=== PATIENT | female | born 1945 | race Hispanic/Latino ===

== ENCOUNTER 2017-12-24 18:36 | Inpatient (IN) | payer OTHER ==
[~2017-12-24] VITALS: Ht 157.5 cm; Wt 115.2 kg
[2017-12-24] MEDS ORDERED: ONDANSETRON HCL MDV 20ML 2 MG/ML VIAL ONE (19:59)
[2017-12-24] MEDS ORDERED: MORPHINE SULFATE 2 MG/ML 1ML SYG ONE ×2 (19:59→21:11)
[2017-12-24 20:07] LABS: BASOPHILS % (AUTO) 0.8 % (0.0-5.0); EOSINOPHILS % (AUTO) 3.8 % (0.0-8.0); HEMATOCRIT 29.6 % (36-48); LYMPHOCYTES % (AUTO) 20.6 % (21.0-51.0); MEAN CORPUSCULAR HEMOGLOBIN 32.1 pg (27.0-33.0); MEAN CORPUSCULAR HGB CONC 34.3 g/dL (32.0-36.0); MEAN CORPUSCULAR VOLUME 93.7 fL (79-99); MONOCYTES % (AUTO) 5.1 % (3.0-13.0); NEUTROPHILS % (AUTO) 69.7 % (40.0-77.0); PLATELET COUNT (AUTO) 176 K/uL (130-400); RED BLOOD CELL COUNT(AUTO) 3.16 MIL/uL (4.00-5.50); RED CELL DISTRIBUTION WIDTH 13.9 % (11.0-15.5); WHITE BLOOD COUNT (AUTO) 6.2 K/uL (4.8-10.8)
[2017-12-24 20:15] LABS: CREATININE 1.7 mg/dL (0.5-1.5); POTASSIUM 5.2 mmol/L (3.5-5.1)
[2017-12-24 20:16] LABS: PARTIAL THROMBOPLASTIN TIME 24.4 SEC (26.3-35.5); PROTHROMBIN TIME 10.5 SEC (9.6-11.6)
[2017-12-24 20:39] LABS: CREATINE KINASE MB 1.1 ng/mL (0.5-3.6)
[2017-12-24] MEDS ORDERED: ACETAMINOPHEN 325 MG TAB PO PRN (22:15)
[2017-12-24] MEDS ORDERED: CEFAZOLIN 1GM / D5W 50ML 50 ML IV SCH (22:15)
[2017-12-24] MEDS ORDERED: ONDANSETRON HCL 4 MG/2 ML VIAL IV PRN (22:15)
[2017-12-24] MEDS ORDERED: HYDRALAZINE HCL 20 MG/ML VIAL IV PRN (22:15)
[2017-12-24 23:00] VITALS: BP 140/57
[2017-12-24] MEDS ORDERED: SODIUM CHLORIDE 0.9% 1000ML 1,000 ML IV ONE (23:14)
[2017-12-24] MEDS ORDERED: CEFAZOLIN SODIUM 1 GM VIAL ONE (23:17)
[2017-12-25] VITALS (25 sets, daily range): BP systolic 116–163; BP diastolic 7–67
[2017-12-25] MEDS ORDERED: ONDANSETRON HCL MDV 20ML 2 MG/ML VIAL ONE ×4 (00:28→16:05)
[2017-12-25] MEDS ORDERED: MORPHINE SULFATE 2 MG/ML 1ML SYG ONE (00:28)
[2017-12-25] MEDS ORDERED: HYDR10 PO (01:34)
[2017-12-25] MEDS ORDERED: CEFAZOLIN SODIUM 1 GM VIAL IVP SCH (02:00)
[2017-12-25 05:21] LABS: HEMATOCRIT 26.7 % (36-48); MEAN CORPUSCULAR HEMOGLOBIN 31.4 pg (27.0-33.0); MEAN CORPUSCULAR HGB CONC 34.2 g/dL (32.0-36.0); PLATELET COUNT (AUTO) 172 K/uL (130-400); RED CELL DISTRIBUTION WIDTH 13.9 % (11.0-15.5); WHITE BLOOD COUNT (AUTO) 6.8 K/uL (4.8-10.8)
[2017-12-25 05:25] LABS: INR 1.02 (0.85-1.15); PARTIAL THROMBOPLASTIN TIME 24.3 SEC (26.3-35.5); PROTHROMBIN TIME 10.7 SEC (9.6-11.6)
[2017-12-25 05:43] LABS: HEMOGLOBIN A1C 6.1 % (4.0-6.0)
[2017-12-25 06:00] LABS: CREATININE 1.6 mg/dL (0.5-1.5); MAGNESIUM 1.9 mg/dL (1.80-2.40); PHOSPHORUS 4.1 mg/dL (2.5-4.9); POTASSIUM 5.1 mmol/L (3.5-5.1)
[2017-12-25] MEDS: MORPHINE SULFATE 2 MG/ML 1ML SYG IV PRN ×2 (06:02→10:11)
[2017-12-25 06:03] LABS: BAND NEUTROPHILS % (MANUAL) 6 % (0-2); EOSINOPHILS % (MANUAL) 1 % (1-6); LYMPHOCYTES % (MANUAL) 11 % (22-44); MAN.DIFF COMMENT-IMPRESSION MANUAL DIFFERENTIAL; MONOCYTES % (MANUAL) 7 % (2-9); SEGMENTED NEUTROPHILS % 75 % (40-70)
[2017-12-25 06:04] LABS: PLATELET MORPHOLOGY COMMENT ADEQUATE
[2017-12-25] MEDS: INSULIN HUMULIN R 100 UNIT/ML 3ML SQ SCH ×4 (06:26→20:27)
[2017-12-25] MEDS: DOCUSATE SODIUM 100 MG CAP PO SCH ×2 (09:00→20:26)
[2017-12-25] MEDS: PANTOPRAZOLE SODIUM 40 MG TABLET.DR PO SCH (09:00)
[2017-12-25] MEDS: SODIUM CHLORIDE 0.9% 1000ML 1,000 ML IV SCH ×2 (10:03→18:10)
[2017-12-25] MEDS: CEFAZOLIN SODIUM 1 GM VIAL IVP SCH ×2 (14:45→16:15)
[2017-12-25] MEDS ORDERED: CEFAZOLIN 2GM / 50 ML 50 ML IV SCH (14:45)
[2017-12-25] MEDS ORDERED: PROPOFOL 10 MG/ML 20ML VIAL IV ONE (15:38)
[2017-12-25] MEDS ORDERED: MIDAZOLAM HCL 1 MG/ML 2ML VIAL ONE (15:38)
[2017-12-25] MEDS ORDERED: FENTANYL CITRATE PF 50 MCG/1 ML 2ML VIAL ONE ×4 (15:38→18:15)
[2017-12-25] MEDS ORDERED: FERS325 PO (15:47)
[2017-12-25] MEDS ORDERED: PIOG15TA66 PO (15:47)
[2017-12-25] MEDS ORDERED: FURO20TA4 PO (15:47)
[2017-12-25] MEDS ORDERED: GLYCOPYRROLATE 0.2 MG/ML 5 ML VIAL ONE (16:05)
[2017-12-25] MEDS ORDERED: DiphenhydrAMINE HCL 50 MG/ML VIAL ONE (16:05)
[2017-12-25] MEDS ORDERED: NEOSTIGMINE METHYLSULFATE 1MG/ML IV ONE (16:05)
[2017-12-25] MEDS ORDERED: EPHEDRINE SULFATE 50 MG/ML AMPULE ONE (16:19)
[2017-12-25] MEDS ORDERED: SCOPOLAMINE HYDROBROMIDE 1 EACH ADH..PATCH TD ONE (16:21)
[2017-12-25] MEDS ORDERED: SODIUM CHLORIDE 0.9% 10 ML VIAL ONE (16:34)
[2017-12-25] MEDS ORDERED: PHENYLEPHRINE HCL 10 MG/ML 1ML VIAL IV ONE (16:34)
[2017-12-25] MEDS ORDERED: MEPERIDINE-PF 25 MG/ML SYG ONE (18:46)
[2017-12-25] MEDS: ONDANSETRON HCL MDV 20ML 2 MG/ML VIAL IV PRN (20:07)
[2017-12-26] MEDS: SODIUM CHLORIDE 0.9% 1000ML 1,000 ML IV SCH ×3 (03:56→22:58)
[2017-12-26 04:54] VITALS: BP 158/62
[2017-12-26 05:43] LABS: HEMATOCRIT 21.7 % (36-48); MEAN CORPUSCULAR HEMOGLOBIN 32.3 pg (27.0-33.0); MEAN CORPUSCULAR HGB CONC 34.8 g/dL (32.0-36.0); MEAN CORPUSCULAR VOLUME 92.9 fL (79-99); PLATELET COUNT (AUTO) 138 K/uL (130-400); RED BLOOD CELL COUNT(AUTO) 2.34 MIL/uL (4.00-5.50); RED CELL DISTRIBUTION WIDTH 13.8 % (11.0-15.5); WHITE BLOOD COUNT (AUTO) 8.3 K/uL (4.8-10.8)
[2017-12-26 06:05] LABS: CREATININE 1.7 mg/dL (0.5-1.5); MAGNESIUM 1.8 mg/dL (1.80-2.40); POTASSIUM 5.1 mmol/L (3.5-5.1)
[2017-12-26] MEDS: INSULIN HUMULIN R 100 UNIT/ML 3ML SQ SCH ×4 (06:38→20:34)
[2017-12-26 07:53] VITALS: BP 126/52
[2017-12-26] MEDS: PANTOPRAZOLE SODIUM 40 MG TABLET.DR PO SCH (09:13)
[2017-12-26] MEDS: DOCUSATE SODIUM 100 MG CAP PO SCH ×2 (09:13→21:22)
[2017-12-26] MEDS ORDERED: HYDROCORTISONE 0.5% 30 GM OINT TP PRN (10:00)
[2017-12-26] MEDS: ONDANSETRON HCL MDV 20ML 2 MG/ML VIAL IV PRN ×2 (10:36→18:46)
[2017-12-26] MEDS: MORPHINE SULFATE 2 MG/ML 1ML SYG IV PRN ×2 (10:37→18:46)
[2017-12-26] MEDS ORDERED: HYDROCORTISONE 1% 28.35 GM CREAM TP PRN (11:00)
[2017-12-26 12:00] VITALS: BP 121/55
[2017-12-26] MEDS: CEFAZOLIN SODIUM 1 GM VIAL IVP SCH (14:45)
[2017-12-26 16:25] VITALS: BP 123/54
[2017-12-26 19:54] VITALS: BP 106/50
[2017-12-26] MEDS ORDERED: HYDROCODONE/ACETAMINOPHEN 5/325 MG TAB ONE (21:19)
[2017-12-26] MEDS: HYDROCODONE/ACETAMINOPHEN 5/325 MG TAB PO SCH (21:22)
[2017-12-27] MEDS ORDERED: MORPHINE SULFATE 4 MG/1ML SYG IVP PRN (00:30)
[2017-12-27 00:40] VITALS: BP 101/59
[2017-12-27] MEDS: HYDROCODONE/ACETAMINOPHEN 5/325 MG TAB PO SCH ×6 (03:37→23:46)
[2017-12-27 04:00] VITALS: BP 127/62
[2017-12-27 05:29] LABS: CREATININE 1.6 mg/dL (0.5-1.5); POTASSIUM 4.6 mmol/L (3.5-5.1)
[2017-12-27 05:35] LABS: MEAN CORPUSCULAR HEMOGLOBIN 32.5 pg (27.0-33.0); MEAN CORPUSCULAR VOLUME 93.1 fL (79-99); PLATELET COUNT (AUTO) 121 K/uL (130-400); RED BLOOD CELL COUNT(AUTO) 2.24 MIL/uL (4.00-5.50); RED CELL DISTRIBUTION WIDTH 13.8 % (11.0-15.5); WHITE BLOOD COUNT (AUTO) 8.1 K/uL (4.8-10.8)
[2017-12-27 05:36] LABS: HEMATOCRIT 20.9 % (36-48)
[2017-12-27] MEDS: INSULIN HUMULIN R 100 UNIT/ML 3ML SQ SCH ×4 (06:30→20:39)
[2017-12-27 07:30] VITALS: BP 102/50
[2017-12-27] MEDS: PANTOPRAZOLE SODIUM 40 MG TABLET.DR PO SCH (08:02)
[2017-12-27] MEDS: DOCUSATE SODIUM 100 MG CAP PO SCH ×2 (08:02→20:39)
[2017-12-27] MEDS: ENOXAPARIN SODIUM 40 MG/0.4 ML SYRINGE SQ SCH (08:03)
[2017-12-27] MEDS: PIOGLITAZONE HCL 15 MG TAB PO SCH (09:19)
[2017-12-27] MEDS: FERROUS SULFATE 325 MG TABLET.DR PO SCH (09:19)
[2017-12-27] MEDS: FUROSEMIDE 20 MG TABLET PO SCH (09:19)
[2017-12-27] MEDS: SODIUM CHLORIDE 0.9% 1000ML 1,000 ML IV SCH ×2 (10:10→20:10)
[2017-12-27 11:00] VITALS: BP 133/63
[2017-12-27] MEDS: CEFAZOLIN SODIUM 1 GM VIAL IVP SCH (14:45)
[2017-12-27 16:00] VITALS: BP 147/60
[2017-12-27 20:07] VITALS: BP 130/57
[2017-12-28] VITALS (7 sets, daily range): BP systolic 112–140; BP diastolic 50–69
[2017-12-28] MEDS: SODIUM CHLORIDE 0.9% 1000ML 1,000 ML IV SCH ×2 (03:25→11:58)
[2017-12-28] MEDS: HYDROCODONE/ACETAMINOPHEN 5/325 MG TAB PO SCH ×5 (04:34→21:24)
[2017-12-28 04:55] LABS: MEAN CORPUSCULAR HEMOGLOBIN 32.9 pg (27.0-33.0); MEAN CORPUSCULAR HGB CONC 35.5 g/dL (32.0-36.0); MEAN CORPUSCULAR VOLUME 92.7 fL (79-99); NUCLEATED RED BLOOD CELLS 0.1 % (0.0-0.19); PLATELET COUNT (AUTO) 133 K/uL (130-400); RED BLOOD CELL COUNT(AUTO) 2.14 MIL/uL (4.00-5.50); RED CELL DISTRIBUTION WIDTH 13.8 % (11.0-15.5)
[2017-12-28 04:58] LABS: HEMATOCRIT 19.9 % (36-48)
[2017-12-28 04:59] LABS: CREATININE 1.7 mg/dL (0.5-1.5); MAGNESIUM 1.9 mg/dL (1.80-2.40); POTASSIUM 4.5 mmol/L (3.5-5.1)
[2017-12-28] MEDS: INSULIN HUMULIN R 100 UNIT/ML 3ML SQ SCH ×4 (06:15→21:00)
[2017-12-28] MEDS: DOCUSATE SODIUM 100 MG CAP PO SCH ×2 (09:12→21:24)
[2017-12-28] MEDS: PIOGLITAZONE HCL 15 MG TAB PO SCH (09:12)
[2017-12-28] MEDS: PANTOPRAZOLE SODIUM 40 MG TABLET.DR PO SCH (09:13)
[2017-12-28] MEDS: FUROSEMIDE 20 MG TABLET PO SCH (09:13)
[2017-12-28] MEDS: TAMSULOSIN HCL 0.4 MG CAP.ER.24H PO SCH (09:13)
[2017-12-28] MEDS: FERROUS SULFATE 325 MG TABLET.DR PO SCH (09:13)
[2017-12-28] MEDS: ENOXAPARIN SODIUM 40 MG/0.4 ML SYRINGE SQ SCH (09:14)
[2017-12-28] MEDS ORDERED: LACTULOSE 20 GM/30 ML UDCUP PO PRN (09:15)
[2017-12-28 21:37] LABS: HEMATOCRIT 21.9 % (36-48)
[2017-12-29] MEDS: SODIUM CHLORIDE 0.9% 1000ML 1,000 ML IV SCH ×2 (01:21→12:10)
[2017-12-29] MEDS: HYDROCODONE/ACETAMINOPHEN 5/325 MG TAB PO SCH ×6 (01:25→20:00)
[2017-12-29 04:42] VITALS: BP 130/70
[2017-12-29 05:34] LABS: HEMATOCRIT 22.4 % (36-48); MEAN CORPUSCULAR HEMOGLOBIN 30.9 pg (27.0-33.0); MEAN CORPUSCULAR HGB CONC 33.8 g/dL (32.0-36.0); MEAN CORPUSCULAR VOLUME 91.2 fL (79-99); NUCLEATED RED BLOOD CELLS 0.1 % (0.0-0.19); PLATELET COUNT (AUTO) 175 K/uL (130-400); RED BLOOD CELL COUNT(AUTO) 2.46 MIL/uL (4.00-5.50); RED CELL DISTRIBUTION WIDTH 14.6 % (11.0-15.5)
[2017-12-29] MEDS: INSULIN HUMULIN R 100 UNIT/ML 3ML SQ SCH ×4 (05:41→21:00)
[2017-12-29 05:45] LABS: CREATININE 1.8 mg/dL (0.5-1.5); POTASSIUM 4.4 mmol/L (3.5-5.1)
[2017-12-29 08:30] VITALS: BP 134/64
[2017-12-29] MEDS: PANTOPRAZOLE SODIUM 40 MG TABLET.DR PO SCH (08:52)
[2017-12-29] MEDS: TAMSULOSIN HCL 0.4 MG CAP.ER.24H PO SCH (08:52)
[2017-12-29] MEDS: FERROUS SULFATE 325 MG TABLET.DR PO SCH (08:52)
[2017-12-29] MEDS: PIOGLITAZONE HCL 15 MG TAB PO SCH (08:52)
[2017-12-29] MEDS: FUROSEMIDE 20 MG TABLET PO SCH (08:52)
[2017-12-29] MEDS: DOCUSATE SODIUM 100 MG CAP PO SCH ×2 (08:52→22:08)
[2017-12-29] MEDS: ENOXAPARIN SODIUM 40 MG/0.4 ML SYRINGE SQ SCH (08:56)
[2017-12-29 11:29] VITALS: BP 134/59
[2017-12-29 16:30] VITALS: BP 144/53
[2017-12-29 19:23] VITALS: BP 153/60
[2017-12-29 23:10] VITALS: BP 126/84
[2017-12-30] MEDS: HYDROCODONE/ACETAMINOPHEN 5/325 MG TAB PO SCH ×5 (00:04→16:50)
[2017-12-30 03:45] VITALS: BP 144/70
[2017-12-30 05:48] LABS: HEMATOCRIT 22.3 % (36-48); MEAN CORPUSCULAR HEMOGLOBIN 32.8 pg (27.0-33.0); NUCLEATED RED BLOOD CELLS 0.1 % (0.0-0.19); PLATELET COUNT (AUTO) 204 K/uL (130-400); RED BLOOD CELL COUNT(AUTO) 2.45 MIL/uL (4.00-5.50); RED CELL DISTRIBUTION WIDTH 13.9 % (11.0-15.5); WHITE BLOOD COUNT (AUTO) 5.3 K/uL (4.8-10.8)
[2017-12-30 05:56] LABS: CREATININE 1.8 mg/dL (0.5-1.5); POTASSIUM 4.3 mmol/L (3.5-5.1)
[2017-12-30] MEDS: INSULIN HUMULIN R 100 UNIT/ML 3ML SQ SCH ×3 (07:30→16:30)
[2017-12-30 08:07] LABS: BASOPHILS % (MANUAL) 2 % (0-2); EOSINOPHILS % (MANUAL) 10 % (1-6); LYMPHOCYTES % (MANUAL) 20 % (22-44); MAN.DIFF COMMENT-IMPRESSION MANUAL DIFFERENTIAL; MONOCYTES % (MANUAL) 5 % (2-9); PLATELET MORPHOLOGY COMMENT ADEQUATE; SEGMENTED NEUTROPHILS % 63 % (40-70)
[2017-12-30 08:32] VITALS: BP 134/60
[2017-12-30] MEDS: TAMSULOSIN HCL 0.4 MG CAP.ER.24H PO SCH (09:16)
[2017-12-30] MEDS: FUROSEMIDE 20 MG TABLET PO SCH (09:16)
[2017-12-30] MEDS: PIOGLITAZONE HCL 15 MG TAB PO SCH (09:16)
[2017-12-30] MEDS: FERROUS SULFATE 325 MG TABLET.DR PO SCH (09:16)
[2017-12-30] MEDS: PANTOPRAZOLE SODIUM 40 MG TABLET.DR PO SCH (09:16)
[2017-12-30] MEDS: DOCUSATE SODIUM 100 MG CAP PO SCH (09:16)
[2017-12-30] MEDS: ENOXAPARIN SODIUM 40 MG/0.4 ML SYRINGE SQ SCH (09:17)
[2017-12-30 11:23] VITALS: BP 132/67
[2017-12-30 17:38] VITALS: BP 138/56
== END 2017-12-30 20:30 | DRG 481 ==
LOC: EDH 18:36 → EDHIP 21:00 → 4AH 22:58
PROVIDERS: ADMIT Family Medicine; ATTEND Family Medicine
PROC: 0PSLXZZ Reposition Left Ulna, External Approach (ICD-10-PCS; 2017-12-25)
PROC: 2W3DX1Z Immobilization of Left Lower Arm using Splint (ICD-10-PCS; 2017-12-25)
PROC: 0QSB04Z Reposition Right Lower Femur with Internal Fixation Device, Open Approach (ICD-10-PCS; principal; 2017-12-25 15:38)
PROC: 0PSJXZZ Reposition Left Radius, External Approach (ICD-10-PCS; 2017-12-25 15:38)
PROC: 30233N1 Transfusion of Nonautologous Red Blood Cells into Peripheral Vein, Percutaneous Approach (ICD-10-PCS; 2017-12-28)
DX: S72.451A Displaced supracondylar fracture without intracondylar extension of lower end of right femur, initial encounter for closed fracture (principal); S52.502A Unspecified fracture of the lower end of left radius, initial encounter for closed fracture; E11.22 Type 2 diabetes mellitus with diabetic chronic kidney disease; D63.8 Anemia in other chronic diseases classified elsewhere; E66.01 Morbid (severe) obesity due to excess calories; D62 Acute posthemorrhagic anemia; S52.602A Unspecified fracture of lower end of left ulna, initial encounter for closed fracture; N18.3 Chronic kidney disease, stage 3 (moderate); K21.9 Gastro-esophageal reflux disease without esophagitis; I12.9 Hypertensive chronic kidney disease with stage 1 through stage 4 chronic kidney disease, or unspecified chronic kidney disease; M17.12 Unilateral primary osteoarthritis, left knee; Y93.01 Activity, walking, marching and hiking; R33.9 Retention of urine, unspecified; M81.0 Age-related osteoporosis without current pathological fracture; Z79.4 Long term (current) use of insulin; Z85.528 Personal history of other malignant neoplasm of kidney; Z87.440 Personal history of urinary (tract) infections; Z98.42 Cataract extraction status, left eye; Z98.41 Cataract extraction status, right eye; Z90.49 Acquired absence of other specified parts of digestive tract; Z90.5 Acquired absence of kidney; Y92.481 Parking lot as the place of occurrence of the external cause; Z99.3 Dependence on wheelchair; W10.1XXA Fall (on)(from) sidewalk curb, initial encounter
CPT/HCPCS: 36415; 73100; 73110; 73560; 76000; 80048; 80061; 82550; 82553; 82948; 83036; 83735; 84100; 84484; 85014; 85018; 85025; 85027; 85610; 85730; 86850; 86900; 86901; 86922; 93005; 97039; A4218; A4344; A4565; J0690; J1200; J1650; J2175; J2250; J2370; J2704; J2710; J3010; J3490; J7030; P9016